=== PATIENT | male | born 1940 | race Caucasian/White ===

== ENCOUNTER → 2020-01-31 11:08 | Outpatient (CLI) | payer MEDICARE, OTHER, SELFPAY ==
[2020-01-31 12:04] LABS: Alanine Aminotransferase 21 IU/L (<50); Albumin 4.3 g/dL (3.5-5.0); Albumin Globulin Ratio 1.3 (1.0-2.8); Alkaline Phosphatase 60 U/L (38-126); Aspartate Aminotransferase 22 IU/L (17-59); BUN Creatinine Ratio 23.7 (6-22); Bilirubin Total 0.7 mg/dL (0.2-1.3); Blood Urea Nitrogen 18 mg/dL (9-20); Calcium 9.2 mg/dL (8.4-10.2); Carbon Dioxide 31 mmol/L (22-32); Chloride 104 mmol/L (98-107); Cholesterol 135 mg/dL (140-199); Estimated Glomerular Filt Rate > 60.0 mL/min (>60); Globulin 3.4 g/dL (1.7-4.1); Glucose 105 mg/dL (80-110); HDL Cholesterol 29 mg/dL (40-60); HEMOLYSIS < 15 (0-50); LDL Cholesterol Calculated 87 mg/dL (<100); Potassium 4.9 mmol/L (3.4-5.1); Sodium 141 mmol/L (137-145); Total Protein 7.7 g/dL (6.3-8.2); Triglycerides 94 mg/dL (35-150)
== END ==
PROVIDERS: PCP Internal Medicine; Referring Provider Internal Medicine; Visit Provider Internal Medicine
DX: E78.2 Mixed hyperlipidemia (principal)
CPT/HCPCS: 36415; 80053; 80061

== ENCOUNTER → 2020-09-13 07:04 | Outpatient (CLI) | payer MEDICARE, OTHER, SELFPAY ==
[2020-09-13 08:39] LABS: Alanine Aminotransferase 19 IU/L (<50); Albumin Globulin Ratio 1.3 (1.0-2.8); Alkaline Phosphatase 59 U/L (38-126); Aspartate Aminotransferase 21 IU/L (17-59); BUN Creatinine Ratio 23.4 (6-22); Bilirubin Total 0.6 mg/dL (0.2-1.3); Blood Urea Nitrogen 18 mg/dL (9-20); Calcium 9.2 mg/dL (8.4-10.2); Carbon Dioxide 28 mmol/L (22-32); Chloride 104 mmol/L (98-107); Cholesterol 150 mg/dL (140-199); Estimated Glomerular Filt Rate > 60.0 mL/min (>60); Glucose 109 mg/dL (80-110); HDL Cholesterol 29 mg/dL (40-60); HEMOLYSIS < 15 (0-50); LDL Cholesterol Calculated 94 mg/dL (<100); Potassium 4.4 mmol/L (3.4-5.1); Sodium 140 mmol/L (137-145); Triglycerides 134 mg/dL (35-150)
== END ==
PROVIDERS: PCP Internal Medicine; Referring Provider Internal Medicine; Visit Provider Internal Medicine
DX: E78.2 Mixed hyperlipidemia (principal); G62.9 Polyneuropathy, unspecified
CPT/HCPCS: 36415; 80053; 80061

== ENCOUNTER → 2021-03-06 08:41 | Outpatient (CLI) | payer MEDICARE, OTHER, SELFPAY ==
[2021-03-06 10:03] LABS: Alanine Aminotransferase 18 IU/L (<50); Albumin 4.2 g/dL (3.5-5.0); Albumin Globulin Ratio 1.4 (1.0-2.8); Alkaline Phosphatase 46 U/L (38-126); Aspartate Aminotransferase 20 IU/L (17-59); BUN Creatinine Ratio 20.3 (6-22); Bilirubin Total 0.8 mg/dL (0.2-1.3); Blood Urea Nitrogen 16 mg/dL (9-20); Carbon Dioxide 30 mmol/L (22-32); Chloride 102 mmol/L (98-107); Cholesterol 137 mg/dL (140-199); Estimated Glomerular Filt Rate > 60.0 mL/min (>60); Globulin 2.9 g/dL (1.7-4.1); Glucose 107 mg/dL (80-110); HDL Cholesterol 27 mg/dL (40-60); HEMOLYSIS < 15 (0-50); LDL Cholesterol Calculated 90 mg/dL (<100); Potassium 4.4 mmol/L (3.4-5.1); Sodium 139 mmol/L (137-145); Total Protein 7.1 g/dL (6.3-8.2); Triglycerides 100 mg/dL (35-150)
== END ==
PROVIDERS: PCP Internal Medicine; Referring Provider Internal Medicine; Visit Provider Internal Medicine
DX: E78.2 Mixed hyperlipidemia (principal); R73.03 Prediabetes
CPT/HCPCS: 36415; 80053; 80061

== ENCOUNTER → 2021-04-02 16:21 | Outpatient (CLI) | payer MEDICARE, OTHER, SELFPAY ==
--- NOTE | 2021-04-02 16:24 | DI.RAD.S_ITS ---
PROCEDURE: XR SHOULDER LT MIN 2V INDICATIONS: left shoulder pain TECHNIQUE: 3 views of the shoulder were acquired. COMPARISON: None. FINDINGS: Bones: No acute fractures or dislocations. No suspicious bony lesions. Visualized ribs appear intact. Moderate degenerative changes are seen at the acromioclavicular joint. Soft tissues: No suspicious soft tissue calcifications. IMPRESSION: No acute osseous abnormality. Moderate acromioclavicular joint osteoarthrosis. If the symptoms persist, consider cross sectional imaging such as MRI or CT for further assessment. Dictated by: Jj Lundberg M.D. on 04/02/2021 at 16:47 Approved by: Jj Lundberg M.D. on 04/02/2021 at 16:48
== END ==
PROVIDERS: PCP Internal Medicine; Referring Provider Internal Medicine; Visit Provider Internal Medicine
DX: M25.512 Pain in left shoulder (principal); M19.012 Primary osteoarthritis, left shoulder
CPT/HCPCS: 73030

== ENCOUNTER 2021-06-05 09:45 | Outpatient (RCR) | payer MEDICARE, OTHER, SELFPAY ==
--- NOTE | 2021-04-25 16:40 | PT.OIE ---
Current Diagnoses Pain in left shoulder (04/25/21) Stiffness of left shoulder, not elsewhere classified (04/25/21) Impingement syndrome of left shoulder (04/25/21) Past Medical History (Last Updated 02/22/20 @ 09:43 by Talib Sharp MD) Actinic keratosis (~1994) Benign familial tremor (~2013) Chronic back pain (~1966) Glaucoma (~2013) Hearing loss History of appendectomy (~1950) History of skin surgery Mixed hyperlipidemia Partial blindness (~2018) Peripheral neuropathy Pre-diabetes Retinal vein occlusion of right eye (~2018) Skin cancer (~2001) Snores Substance abuse (~1959) Tinnitus Vision disorder Past Surgical History (Last Updated 12/28/19 @ 20:40 by Samina Hayes) Anesthesia History of appendectomy (~1950) History of skin surgery Visit Care Team Role Provider Type Talib Sharp MD Attending Provider Physician Family Provider Primary Care Provider Referring Provider Specialty: Internal Medicine Address: [address] [place] [address], [facility] Email: [email or web address] Physical Therapy Initial Evaluation PT-OP-A Visit Information Start: 04/25/21 16:10 Freq: Status: Active Protocol: Document 04/25/21 13:45 DCW (Rec: 04/25/21 16:18 DCW [id number]) Out-Patient Physical Therapy Visit Information Visit Information Visit Type Initial Evaluation Visit Start Time 13:45 Visit Stop Time 14:25 Total Visit Minutes 40 Visit Number 1 Number of EDGE PLUGGER Visits 0 Evaluation Information Evaluation Date 04/25/21 PT-OP-B Current Condition Start: 04/25/21 16:10 Freq: Status: Active Protocol: Document 04/25/21 13:45 DCW (Rec: 04/25/21 16:18 DCW [id number]) Current Condition History of Current Condition Onset Date 20 year history Current Complaints Left shoulder pain and stiffness History of Current Condition Pt is an 81 year old male presenting with a long- standing history of shoulder pain. Pt reports overall it is not too bad, but ever since her was building a house in [place] 20 years ago, he has had some arm pain and stiffness, and it seems to be getting a bit worse. Pt has recently been having pain when he rolls onto the shoulder at night, it is bad enough to wake him up, and he's never had this problem previously. Pt notes that he gets a bit more pain when lifting his arm out to the side, he can get it overhead but needs to work at it. Pt also reports he has a regular HEP that he does daily, but would like to review it today, because he is afraid he may be doing something incorrectly that could be adding to his pain. Pt reports his biggest limitation is reaching back to put his arm in his jacket sleeve. PT-OP-C Subjective Start: 04/25/21 16:10 Freq: Status: Active Protocol: Document 04/25/21 13:45 DCW (Rec: 04/25/21 16:18 DCW [id number]) OP-PT Subjective Patient Comments Patient Comments I feel a little silly, most people here are worse off than I am, I'm reallt not to bad. Patient Reported Progress Same OP-PT Pain Assessment Pain Assessment Grid Paper Pain Assessment Grid Completed Yes Location Left Shoulder Intensity 3 Scale Used Numeric (0 - 10) PT-OP-E Functional Tests Start: 04/25/21 16:10 Freq: Status: Active Protocol: Document 04/25/21 13:45 DCW (Rec: 04/25/21 16:25 DCW [id number]) Functional Tests Apley's Scratch Test Action 1- Left Posterior opposite shoulder Action 1- Right Posterior opposite shoulder Action 2- Left T4 Action 2- Right T4 Action 3- Left T10 Action 3- Right T10 PT-OP-F Manual Assessment Start: 04/25/21 16:10 Freq: Status: Active Protocol: Document 04/25/21 13:45 DCW (Rec: 04/25/21 16:25 DCW [id number]) Manual Assessments Soft Tissue Assessment Soft Tissue Mobility Assessment Mild-moderate increased tone with tenderness to palpation 2 /4: pain with wincing left supraspinatus Joint Mobility Assessment Joint Mobility Assessment L GH crepitus with passive ROM PT-OP-K Range of Motion Start: 04/25/21 16:10 Freq: Status: Active Protocol: Document 04/25/21 13:45 DCW (Rec: 04/25/21 16:25 DCW [id number]) Shoulder Goniometric Range of Motion Shoulder Left Active Shoulder ROM WFL Yes Testing Position Sitting Comments Pt shows full ROM, however exhibits painful arc between 80?-120? abduction on left side PT-OP-L Special Tests Start: 04/25/21 16:10 Freq: Status: Active Protocol: Document 04/25/21 13:45 DCW (Rec: 04/25/21 16:25 DCW [id number]) Special Tests Shoulder Special Tests Speed's Biceps Test Results Negative Passive ER Rotator Cuff Test Results Negative Lift-Off Rotator Cuff Test Results Negative Linda Wander Impingement Test Results Negative Empty Can Test Results Negative Drop Arm Rotator Cuff Test Results Negative Clunk Test Test Results Negative Belly Press Test Results Negative Apprehension Test Test Results Negative AC Joint Compression Test Results Positive left PT-OP-M Strength Start: 04/25/21 16:10 Freq: Status: Active Protocol: Document 04/25/21 13:45 DCW (Rec: 04/25/21 16:25 DCW [id number]) Shoulder Strength Shoulder Manual Muscle Testing Left Flexion 3+ Fair+ Extension 5 Normal Abduction (C5) 4- Good- External Rotation 5 Normal Internal Rotation 5 Normal Horizontal Abduction 5 Normal Horizontal Adduction 5 Normal PT-OP-T Assessment and Plan Start: 04/25/21 16:10 Freq: Status: Active Protocol: Document 04/25/21 13:45 DCW (Rec: 04/25/21 16:40 DCW [id number]) Physical Therapy Assessment Rehab Potential Rehabilitation Potential Good Evaluation Complexity Number of Personal Factors/Comorbidities 0 Number of Body Systems Impaired 1-2 Clinical Presentation at Evaluation Stable Impairments Impairments Functional Activities, Functional Mobility,Pain, Strength Goals Three Impairment Pt demonstrates weakness in left shoulder flexion and abduction Glove Parts Cutter Goal (LTG) Pt to improve left flexion and abduction MMT to at least 4/5 to improve ability to put objects in his kitchen cabinets. LTG Duration 06/26/21 Two Impairment Pt struggles to put left arm in jacket sleeve Jail Goal (LTG) Pt to don/doff jacket with no difficulty or pain from his left shoulder LTG Duration 06/26/21 One Impairment Pt does not have an appropriate home exercise program Short Term Goal (STG) Pt to be independent and compliant with an appropriate HEP STG Duration 05/26/21 Assessment Summary Assessment Pt presents with signs and symptoms consistent with possible DJD and subacrominal impingement. Pt is doing fairly well overall, but struggles with elevation of his left arm, especially into abduction and flexion. Pt has some joint crepitus with passive ROM. Additionally, reviewed pt's personal HEP, which includes crunches, KtC, lumbar and cervical stretches, curls, and push-ups. Pt has a tendency to perform all these activities as fast as he possibly can to get my heart rate up, and gets through all ~10 exercises within the span of five minutes. Reviewed importance of performing slow, controlled activities during HEP, pt appeared to understand . Pt should benefit from gentle manual therapy and shoulder strengthening to help scapular stabilization. Physical Therapy Plan Frequency and Duration Frequency of Treatment 1x/Week Duration of Treatment Two months Plan of Care Start Date 04/25/21 Plan of Care End Date 06/26/21 Therapeutic Interventions Therapeutic Interventions Home Exercise Program,Joint Mobilizations,Manual Therapy, Patient/Caregiver Education, Self-Care/Home Management,Soft Tissue Mobilization, Therapeutic Activities, Therapeutic Exercises Modalities Cold Pack/Ice Massage,Electric Stimulation,Hot Packs, Ultrasound Next Visit Focus/Plan Next Note Type Treatment Note Next Visit Plan Scapular/GH strengthening, STM , Joint mobilization
--- NOTE | 2021-04-25 16:40 | PT.OPPOC ---
Physical, Occupational & Speech Therapy At [facility] Current Diagnoses Pain in left shoulder (04/25/21) Stiffness of left shoulder, not elsewhere classified (04/25/21) Impingement syndrome of left shoulder (04/25/21) Visit Care Team Role Provider Type Talib Sharp MD Attending Provider Physician Family Provider Primary Care Provider Referring Provider Specialty: Internal Medicine Address: [address] [place] [address], [address], [address] Email: [email or web address] Plan Of Care PT-OP-T Assessment and Plan Start: 04/25/21 16:10 Freq: Status: Active Protocol: Document 04/25/21 13:45 DCW (Rec: 04/25/21 16:40 DCW [id number]) Physical Therapy Assessment Rehab Potential Rehabilitation Potential Good Evaluation Complexity Number of Personal Factors/Comorbidities 0 Number of Body Systems Impaired 1-2 Clinical Presentation at Evaluation Stable Impairments Impairments Functional Activities, Functional Mobility,Pain, Strength Goals Three Impairment Pt demonstrates weakness in left shoulder flexion and abduction Lacquer Sprayer Goal (LTG) Pt to improve left flexion and abduction MMT to at least 4/5 to improve ability to put objects in his kitchen cabinets. LTG Duration 06/26/21 Two Impairment Pt struggles to put left arm in jacket sleeve Mcc Goal (LTG) Pt to don/doff jacket with no difficulty or pain from his left shoulder LTG Duration 06/26/21 One Impairment Pt does not have an appropriate home exercise program Short Term Goal (STG) Pt to be independent and compliant with an appropriate HEP STG Duration 05/26/21 Assessment Summary Assessment Pt presents with signs and symptoms consistent with possible DJD and subacrominal impingement. Pt is doing fairly well overall, but struggles with elevation of his left arm, especially into abduction and flexion. Pt has some joint crepitus with passive ROM. Additionally, reviewed pt's personal HEP, which includes crunches, KtC, lumbar and cervical stretches, curls, and push-ups. Pt has a tendency to perform all these activities as fast as he possibly can to get my heart rate up, and gets through all ~10 exercises within the span of five minutes. Reviewed importance of performing slow, controlled activities during HEP, pt appeared to understand . Pt should benefit from gentle manual therapy and shoulder strengthening to help scapular stabilization. Physical Therapy Plan Frequency and Duration Frequency of Treatment 1x/Week Duration of Treatment Two months Plan of Care Start Date 04/25/21 Plan of Care End Date 06/26/21 Therapeutic Interventions Therapeutic Interventions Home Exercise Program,Joint Mobilizations,Manual Therapy, Patient/Caregiver Education, Self-Care/Home Management,Soft Tissue Mobilization, Therapeutic Activities, Therapeutic Exercises Modalities Cold Pack/Ice Massage,Electric Stimulation,Hot Packs, Ultrasound Next Visit Focus/Plan Next Note Type Treatment Note Next Visit Plan Scapular/GH strengthening, STM , Joint mobilization Plan of Care Dates Plan of Care Start Date 04/25/21 Plan of Care End Date 06/26/21 Electronically Signed by: Burke Latham, PT 04/25/21 1640 Please Sign and Return: I have reviewed this Plan of Care and certify that the skilled therapy services above are required to meet the patient?s needs. Physician Signature Date Printed Name and Credentials Clinical Instructor Signature Printed Name and Credentials
--- NOTE | 2021-05-07 15:15 | PT.OTN ---
Current Diagnoses Pain in left shoulder (05/07/21) Stiffness of left shoulder, not elsewhere classified (05/07/21) Impingement syndrome of left shoulder (05/07/21) Physical Therapy Treatment Note PT-OP-A Visit Information Start: 04/25/21 16:10 Freq: Status: Active Protocol: Document 05/07/21 14:30 DCW (Rec: 05/07/21 15:15 DCW [id number]) Out-Patient Physical Therapy Visit Information Visit Information Visit Type Treatment Note Visit Start Time 14:30 Visit Stop Time 15:15 Total Visit Minutes 45 Visit Number 2 Number of SKEIN INSPECTOR Visits 0 Evaluation Information Evaluation Date 04/25/21 PT-OP-B Current Condition Start: 04/25/21 16:10 Freq: Status: Active Protocol: Document 04/25/21 13:45 DCW (Rec: 04/25/21 16:18 DCW [id number]) Current Condition History of Current Condition Onset Date 20 year history Current Complaints Left shoulder pain and stiffness History of Current Condition Pt is an 81 year old male presenting with a long- standing history of shoulder pain. Pt reports overall it is not too bad, but ever since her was building a house in [place] 20 years ago, he has had some arm pain and stiffness, and it seems to be getting a bit worse. Pt has recently been having pain when he rolls onto the shoulder at night, it is bad enough to wake him up, and he's never had this problem previously. Pt notes that he gets a bit more pain when lifting his arm out to the side, he can get it overhead but needs to work at it. Pt also reports he has a regular HEP that he does daily, but would like to review it today, because he is afraid he may be doing something incorrectly that could be adding to his pain. Pt reports his biggest limitation is reaching back to put his arm in his jacket sleeve. PT-OP-C Subjective Start: 04/25/21 16:10 Freq: Status: Active Protocol: Document 05/07/21 14:30 DCW (Rec: 05/07/21 15:15 DCW [id number]) OP-PT Subjective Patient Comments Patient Comments My shoulder hasn't been too bad, but my low back has been getting a little stiff. PT-OP-E Functional Tests Start: 04/25/21 16:10 Freq: Status: Active Protocol: Document 04/25/21 13:45 DCW (Rec: 04/25/21 16:25 DCW [id number]) Functional Tests Apley's Scratch Test Action 1- Left Posterior opposite shoulder Action 1- Right Posterior opposite shoulder Action 2- Left T4 Action 2- Right T4 Action 3- Left T10 Action 3- Right T10 PT-OP-F Manual Assessment Start: 04/25/21 16:10 Freq: Status: Active Protocol: Document 04/25/21 13:45 DCW (Rec: 04/25/21 16:25 DCW [id number]) Manual Assessments Soft Tissue Assessment Soft Tissue Mobility Assessment Mild-moderate increased tone with tenderness to palpation 2 /4: pain with wincing left supraspinatus Joint Mobility Assessment Joint Mobility Assessment L GH crepitus with passive ROM PT-OP-K Range of Motion Start: 04/25/21 16:10 Freq: Status: Active Protocol: Document 04/25/21 13:45 DCW (Rec: 04/25/21 16:25 DCW [id number]) Shoulder Goniometric Range of Motion Shoulder Left Active Shoulder ROM WFL Yes Testing Position Sitting Comments Pt shows full ROM, however exhibits painful arc between 80?-120? abduction on left side PT-OP-L Special Tests Start: 04/25/21 16:10 Freq: Status: Active Protocol: Document 04/25/21 13:45 DCW (Rec: 04/25/21 16:25 DCW [id number]) Special Tests Shoulder Special Tests Speed's Biceps Test Results Negative Passive ER Rotator Cuff Test Results Negative Lift-Off Rotator Cuff Test Results Negative Linda Wander Impingement Test Results Negative Empty Can Test Results Negative Drop Arm Rotator Cuff Test Results Negative Clunk Test Test Results Negative Belly Press Test Results Negative Apprehension Test Test Results Negative AC Joint Compression Test Results Positive left PT-OP-M Strength Start: 04/25/21 16:10 Freq: Status: Active Protocol: Document 04/25/21 13:45 DCW (Rec: 04/25/21 16:25 DCW [id number]) Shoulder Strength Shoulder Manual Muscle Testing Left Flexion 3+ Fair+ Extension 5 Normal Abduction (C5) 4- Good- External Rotation 5 Normal Internal Rotation 5 Normal Horizontal Abduction 5 Normal Horizontal Adduction 5 Normal PT-OP-Q Treatments Start: 04/25/21 16:10 Freq: Status: Active Protocol: Document 05/07/21 14:30 DCW (Rec: 05/07/21 15:15 DCW [id number]) Cardio Equipment Upper Body Ergometer (UBE) Duration (Minutes) 5 RPM 60 Seat Position 13 Height 2.5 Gym Equipment Therapeutic Ball 1 Exercise Details Scapular stabilization vs perturbation Ball Size/Color Blue - 45 cm Body Position Supine Therapeutic Exercises Supine Exercises 2 Supine Exercise Name Horizontal Adduction Side bilateral Resistance 2# 1 Supine Exercise Name Serratus punch Side bilateral Resistance 2# Standing Exercises 3 Standing Exercise Name Shoulder ER/IR Side bilateral Resistance Lv 3 2 Standing Exercise Name Rows Side bilateral Resistance Lv 3 1 Standing Exercise Name Shoulder Ext Side bilateral Resistance Lv 3 Manual Therapy Treatment Soft Tissue Mobilization 1 Body Location L Infraspinatus Mobilization Type Strumming,Sustained Pressure Intensity/Depth Moderate Body Position Supine Joint Mobilizations 2 Joint L Scapulothoracic Direction Lat Grade III 1 Joint L GH Direction Inf Grade III PT-OP-T Assessment and Plan Start: 04/25/21 16:10 Freq: Status: Active Protocol: Document 05/07/21 14:30 DCW (Rec: 05/07/21 15:15 DCW [id number]) Physical Therapy Assessment Impairments Impairments Functional Activities, Functional Mobility,Pain, Strength Goals Three Impairment Pt demonstrates weakness in left shoulder flexion and abduction Skilled Nursing Goal (LTG) Pt to improve left flexion and abduction MMT to at least 4/5 to improve ability to put objects in his kitchen cabinets. LTG Duration 06/26/21 Two Impairment Pt struggles to put left arm in jacket sleeve Pick Up And Delivery Driver Goal (LTG) Pt to don/doff jacket with no difficulty or pain from his left shoulder LTG Duration 06/26/21 One Impairment Pt does not have an appropriate home exercise program Short Term Goal (STG) Pt to be independent and compliant with an appropriate HEP STG Duration 05/26/21 Assessment Summary Assessment Pt tolerated treatment well, needs VCs to slow down exercises. Some improved scapular mobility following manual treatment today. Physical Therapy Plan Frequency and Duration Frequency of Treatment 1x/Week Duration of Treatment Two months Plan of Care Start Date 04/25/21 Plan of Care End Date 06/26/21 Therapeutic Interventions Therapeutic Interventions Home Exercise Program,Joint Mobilizations,Manual Therapy, Patient/Caregiver Education, Self-Care/Home Management,Soft Tissue Mobilization, Therapeutic Activities, Therapeutic Exercises Modalities Cold Pack/Ice Massage,Electric Stimulation,Hot Packs, Ultrasound Next Visit Focus/Plan Next Note Type Treatment Note Next Visit Plan Scapular/GH strengthening, STM , Joint mobilization
--- NOTE | 2021-05-15 10:27 | PT.OTN ---
Current Diagnoses Pain in left shoulder (05/15/21) Stiffness of left shoulder, not elsewhere classified (05/15/21) Impingement syndrome of left shoulder (05/15/21) Physical Therapy Treatment Note PT-OP-A Visit Information Start: 04/25/21 16:10 Freq: Status: Active Protocol: Document 05/15/21 09:45 DCW (Rec: 05/15/21 10:26 DCW [id number]) Out-Patient Physical Therapy Visit Information Visit Information Visit Type Treatment Note Visit Start Time 09:45 Visit Stop Time 10:30 Total Visit Minutes 45 Visit Number 3 Number of EDITOR MANAGING NEWSPAPER Visits 0 Evaluation Information Evaluation Date 04/25/21 PT-OP-B Current Condition Start: 04/25/21 16:10 Freq: Status: Active Protocol: Document 04/25/21 13:45 DCW (Rec: 04/25/21 16:18 DCW [id number]) Current Condition History of Current Condition Onset Date 20 year history Current Complaints Left shoulder pain and stiffness History of Current Condition Pt is an 81 year old male presenting with a long- standing history of shoulder pain. Pt reports overall it is not too bad, but ever since her was building a house in [place] 20 years ago, he has had some arm pain and stiffness, and it seems to be getting a bit worse. Pt has recently been having pain when he rolls onto the shoulder at night, it is bad enough to wake him up, and he's never had this problem previously. Pt notes that he gets a bit more pain when lifting his arm out to the side, he can get it overhead but needs to work at it. Pt also reports he has a regular HEP that he does daily, but would like to review it today, because he is afraid he may be doing something incorrectly that could be adding to his pain. Pt reports his biggest limitation is reaching back to put his arm in his jacket sleeve. PT-OP-C Subjective Start: 04/25/21 16:10 Freq: Status: Active Protocol: Document 05/15/21 09:45 DCW (Rec: 05/15/21 10:26 DCW [id number]) OP-PT Subjective Patient Comments Patient Comments I can still feel it, but it's not waking me up at night, with is a pretty significant improvement. PT-OP-E Functional Tests Start: 04/25/21 16:10 Freq: Status: Active Protocol: Document 04/25/21 13:45 DCW (Rec: 04/25/21 16:25 DCW [id number]) Functional Tests Apley's Scratch Test Action 1- Left Posterior opposite shoulder Action 1- Right Posterior opposite shoulder Action 2- Left T4 Action 2- Right T4 Action 3- Left T10 Action 3- Right T10 PT-OP-F Manual Assessment Start: 04/25/21 16:10 Freq: Status: Active Protocol: Document 04/25/21 13:45 DCW (Rec: 04/25/21 16:25 DCW [id number]) Manual Assessments Soft Tissue Assessment Soft Tissue Mobility Assessment Mild-moderate increased tone with tenderness to palpation 2 /4: pain with wincing left supraspinatus Joint Mobility Assessment Joint Mobility Assessment L GH crepitus with passive ROM PT-OP-K Range of Motion Start: 04/25/21 16:10 Freq: Status: Active Protocol: Document 04/25/21 13:45 DCW (Rec: 04/25/21 16:25 DCW [id number]) Shoulder Goniometric Range of Motion Shoulder Left Active Shoulder ROM WFL Yes Testing Position Sitting Comments Pt shows full ROM, however exhibits painful arc between 80?-120? abduction on left side PT-OP-L Special Tests Start: 04/25/21 16:10 Freq: Status: Active Protocol: Document 04/25/21 13:45 DCW (Rec: 04/25/21 16:25 DCW [id number]) Special Tests Shoulder Special Tests Speed's Biceps Test Results Negative Passive ER Rotator Cuff Test Results Negative Lift-Off Rotator Cuff Test Results Negative Linda Wander Impingement Test Results Negative Empty Can Test Results Negative Drop Arm Rotator Cuff Test Results Negative Clunk Test Test Results Negative Belly Press Test Results Negative Apprehension Test Test Results Negative AC Joint Compression Test Results Positive left PT-OP-M Strength Start: 04/25/21 16:10 Freq: Status: Active Protocol: Document 04/25/21 13:45 DCW (Rec: 04/25/21 16:25 DCW [id number]) Shoulder Strength Shoulder Manual Muscle Testing Left Flexion 3+ Fair+ Extension 5 Normal Abduction (C5) 4- Good- External Rotation 5 Normal Internal Rotation 5 Normal Horizontal Abduction 5 Normal Horizontal Adduction 5 Normal PT-OP-Q Treatments Start: 04/25/21 16:10 Freq: Status: Active Protocol: Document 05/15/21 09:45 DCW (Rec: 05/15/21 10:26 [facility] [id number]) Cardio Equipment Upper Body Ergometer (UBE) Duration (Minutes) 5 RPM 60 Seat Position 13 Height 2.5 Therapeutic Exercises Other Exercises 4 Other Exercise Name Wall push-ups Comments <> and W hand positions 3 Other Exercise Name Wall Clock Side bilateral Resistance Red Equipment Used T-band 2 Other Exercise Name UE resisted side-stepping Resistance Red Equipment Used T-band 1 Other Exercise Name Wall circles - ball on wall Side left Resistance 4# Comments flexion/abduction Manual Therapy Treatment Soft Tissue Mobilization 2 Body Location L Subscapularis Mobilization Type Strumming,Sustained Pressure Intensity/Depth Moderate Body Position Supine 1 Body Location L Infraspinatus Mobilization Type Strumming,Sustained Pressure Intensity/Depth Moderate Body Position Supine Joint Mobilizations 2 Joint L Scapulothoracic Direction Lat Grade III 1 Joint L GH Direction Inf Grade III PT-OP-T Assessment and Plan Start: 04/25/21 16:10 Freq: Status: Active Protocol: Document 05/15/21 09:45 DCW (Rec: 05/15/21 10:26 DC [id number]) Physical Therapy Assessment Impairments Impairments Functional Activities, Functional Mobility,Pain, Strength Goals Three Impairment Pt demonstrates weakness in left shoulder flexion and abduction Doorperson Goal (LTG) Pt to improve left flexion and abduction MMT to at least 4/5 to improve ability to put objects in his kitchen cabinets. LTG Duration 06/26/21 Two Impairment Pt struggles to put left arm in jacket sleeve Doorperson Goal (LTG) Pt to don/doff jacket with no difficulty or pain from his left shoulder LTG Duration 06/26/21 One Impairment Pt does not have an appropriate home exercise program Short Term Goal (STG) Pt to be independent and compliant with an appropriate HEP STG Duration 05/26/21 Assessment Summary Assessment Pt already showing very good improvement, improved pain- free ROM, significant improvement with quality and control of movement during HEP Physical Therapy Plan Frequency and Duration Frequency of Treatment 1x/Week Duration of Treatment Two months Plan of Care Start Date 04/25/21 Plan of Care End Date 06/26/21 Therapeutic Interventions Therapeutic Interventions Home Exercise Program,Joint Mobilizations,Manual Therapy, Patient/Caregiver Education, Self-Care/Home Management,Soft Tissue Mobilization, Therapeutic Activities, Therapeutic Exercises Modalities Cold Pack/Ice Massage,Electric Stimulation,Hot Packs, Ultrasound Next Visit Focus/Plan Next Note Type Treatment Note Next Visit Plan Scapular/GH strengthening, STM , Joint mobilization
--- NOTE | 2021-05-22 10:30 | PT.OTN ---
Current Diagnoses Pain in left shoulder (05/22/21) Stiffness of left shoulder, not elsewhere classified (05/22/21) Impingement syndrome of left shoulder (05/22/21) Physical Therapy Treatment Note PT-OP-A Visit Information Start: 04/25/21 16:10 Freq: Status: Active Protocol: Document 05/22/21 09:45 DCW (Rec: 05/22/21 10:30 DCW [id number]) Out-Patient Physical Therapy Visit Information Visit Information Visit Type Treatment Note Visit Start Time 09:45 Visit Stop Time 10:30 Total Visit Minutes 45 Visit Number 4 Number of FLUME WORKER Visits 0 Evaluation Information Evaluation Date 04/25/21 PT-OP-B Current Condition Start: 04/25/21 16:10 Freq: Status: Active Protocol: Document 04/25/21 13:45 DCW (Rec: 04/25/21 16:18 DCW [id number]) Current Condition History of Current Condition Onset Date 20 year history Current Complaints Left shoulder pain and stiffness History of Current Condition Pt is an 81 year old male presenting with a long- standing history of shoulder pain. Pt reports overall it is not too bad, but ever since her was building a house in [place] 20 years ago, he has had some arm pain and stiffness, and it seems to be getting a bit worse. Pt has recently been having pain when he rolls onto the shoulder at night, it is bad enough to wake him up, and he's never had this problem previously. Pt notes that he gets a bit more pain when lifting his arm out to the side, he can get it overhead but needs to work at it. Pt also reports he has a regular HEP that he does daily, but would like to review it today, because he is afraid he may be doing something incorrectly that could be adding to his pain. Pt reports his biggest limitation is reaching back to put his arm in his jacket sleeve. PT-OP-C Subjective Start: 04/25/21 16:10 Freq: Status: Active Protocol: Document 05/22/21 09:45 DCW (Rec: 05/22/21 10:30 DCW [id number]) OP-PT Subjective Patient Comments Patient Comments It's getting better, it's certainly not 100% yet. PT-OP-E Functional Tests Start: 04/25/21 16:10 Freq: Status: Active Protocol: Document 04/25/21 13:45 DCW (Rec: 04/25/21 16:25 DCW [id number]) Functional Tests Apley's Scratch Test Action 1- Left Posterior opposite shoulder Action 1- Right Posterior opposite shoulder Action 2- Left T4 Action 2- Right T4 Action 3- Left T10 Action 3- Right T10 PT-OP-F Manual Assessment Start: 04/25/21 16:10 Freq: Status: Active Protocol: Document 04/25/21 13:45 DCW (Rec: 04/25/21 16:25 DCW [id number]) Manual Assessments Soft Tissue Assessment Soft Tissue Mobility Assessment Mild-moderate increased tone with tenderness to palpation 2 /4: pain with wincing left supraspinatus Joint Mobility Assessment Joint Mobility Assessment L GH crepitus with passive ROM PT-OP-K Range of Motion Start: 04/25/21 16:10 Freq: Status: Active Protocol: Document 04/25/21 13:45 DCW (Rec: 04/25/21 16:25 DCW [id number]) Shoulder Goniometric Range of Motion Shoulder Left Active Shoulder ROM WFL Yes Testing Position Sitting Comments Pt shows full ROM, however exhibits painful arc between 80?-120? abduction on left side PT-OP-L Special Tests Start: 04/25/21 16:10 Freq: Status: Active Protocol: Document 04/25/21 13:45 DCW (Rec: 04/25/21 16:25 DCW [id number]) Special Tests Shoulder Special Tests Speed's Biceps Test Results Negative Passive ER Rotator Cuff Test Results Negative Lift-Off Rotator Cuff Test Results Negative Linda Wander Impingement Test Results Negative Empty Can Test Results Negative Drop Arm Rotator Cuff Test Results Negative Clunk Test Test Results Negative Belly Press Test Results Negative Apprehension Test Test Results Negative AC Joint Compression Test Results Positive left PT-OP-M Strength Start: 04/25/21 16:10 Freq: Status: Active Protocol: Document 04/25/21 13:45 DCW (Rec: 04/25/21 16:25 DCW [id number]) Shoulder Strength Shoulder Manual Muscle Testing Left Flexion 3+ Fair+ Extension 5 Normal Abduction (C5) 4- Good- External Rotation 5 Normal Internal Rotation 5 Normal Horizontal Abduction 5 Normal Horizontal Adduction 5 Normal PT-OP-Q Treatments Start: 04/25/21 16:10 Freq: Status: Active Protocol: Document 05/22/21 09:45 DCW (Rec: 05/22/21 10:30 DCW [id number]) Cardio Equipment Upper Body Ergometer (UBE) Duration (Minutes) 5 RPM 60 Seat Position 13 Height 2.5 Therapeutic Exercises Other Exercises 3 Other Exercise Name Wall Clock Side bilateral Resistance Red Equipment Used T-band 2 Other Exercise Name UE resisted side-stepping Resistance Red Equipment Used T-band Manual Therapy Treatment Soft Tissue Mobilization 2 Body Location L Subscapularis Mobilization Type Strumming,Sustained Pressure Intensity/Depth Moderate Body Position Supine 1 Body Location L Infraspinatus Mobilization Type Strumming,Sustained Pressure Intensity/Depth Moderate Body Position Supine Joint Mobilizations 2 Joint L Scapulothoracic Direction Lat Grade III 1 Joint L GH Direction Inf Grade III PT-OP-T Assessment and Plan Start: 04/25/21 16:10 Freq: Status: Active Protocol: Document 05/22/21 09:45 DCW (Rec: 05/22/21 10:30 DCW [id number]) Physical Therapy Assessment Impairments Impairments Functional Activities, Functional Mobility,Pain, Strength Goals Three Impairment Pt demonstrates weakness in left shoulder flexion and abduction Skilled Nursing Goal (LTG) Pt to improve left flexion and abduction MMT to at least 4/5 to improve ability to put objects in his kitchen cabinets. LTG Duration 06/26/21 Two Impairment Pt struggles to put left arm in jacket sleeve Skilled Nursing Goal (LTG) Pt to don/doff jacket with no difficulty or pain from his left shoulder LTG Duration 06/26/21 One Impairment Pt does not have an appropriate home exercise program Short Term Goal (STG) Pt to be independent and compliant with an appropriate HEP STG Duration 05/26/21 Assessment Summary Assessment Pt continues to progress well, noting improved pain levels and mobility. Improving with HEP, still needs VCs to improve pacing. Physical Therapy Plan Frequency and Duration Frequency of Treatment 1x/Week Duration of Treatment Two months Plan of Care Start Date 04/25/21 Plan of Care End Date 06/26/21 Therapeutic Interventions Therapeutic Interventions Home Exercise Program,Joint Mobilizations,Manual Therapy, Patient/Caregiver Education, Self-Care/Home Management,Soft Tissue Mobilization, Therapeutic Activities, Therapeutic Exercises Modalities Cold Pack/Ice Massage,Electric Stimulation,Hot Packs, Ultrasound Next Visit Focus/Plan Next Note Type Treatment Note Next Visit Plan Scapular/GH strengthening, STM , Joint mobilization
--- NOTE | 2021-05-31 10:27 | PT.OTN ---
Current Diagnoses Pain in left shoulder (05/31/21) Stiffness of left shoulder, not elsewhere classified (05/31/21) Impingement syndrome of left shoulder (05/31/21) Physical Therapy Treatment Note PT-OP-A Visit Information Start: 04/25/21 16:10 Freq: Status: Active Protocol: Document 05/31/21 09:45 DCW (Rec: 05/31/21 10:27 DCW [id number]) Out-Patient Physical Therapy Visit Information Visit Information Visit Type Treatment Note Visit Start Time 09:45 Visit Stop Time 10:30 Total Visit Minutes 45 Visit Number 5 Number of RETURN AGENT Visits 0 Evaluation Information Evaluation Date 04/25/21 PT-OP-B Current Condition Start: 04/25/21 16:10 Freq: Status: Active Protocol: Document 04/25/21 13:45 DCW (Rec: 04/25/21 16:18 DCW [id number]) Current Condition History of Current Condition Onset Date 20 year history Current Complaints Left shoulder pain and stiffness History of Current Condition Pt is an 81 year old male presenting with a long- standing history of shoulder pain. Pt reports overall it is not too bad, but ever since her was building a house in [place] 20 years ago, he has had some arm pain and stiffness, and it seems to be getting a bit worse. Pt has recently been having pain when he rolls onto the shoulder at night, it is bad enough to wake him up, and he's never had this problem previously. Pt notes that he gets a bit more pain when lifting his arm out to the side, he can get it overhead but needs to work at it. Pt also reports he has a regular HEP that he does daily, but would like to review it today, because he is afraid he may be doing something incorrectly that could be adding to his pain. Pt reports his biggest limitation is reaching back to put his arm in his jacket sleeve. PT-OP-C Subjective Start: 04/25/21 16:10 Freq: Status: Active Protocol: Document 05/31/21 09:45 DCW (Rec: 05/31/21 10:27 DCW [id number]) OP-PT Subjective Patient Comments Patient Comments It's a lot better than it was when I started in here. PT-OP-E Functional Tests Start: 04/25/21 16:10 Freq: Status: Active Protocol: Document 04/25/21 13:45 DCW (Rec: 04/25/21 16:25 DCW [id number]) Functional Tests Apley's Scratch Test Action 1- Left Posterior opposite shoulder Action 1- Right Posterior opposite shoulder Action 2- Left T4 Action 2- Right T4 Action 3- Left T10 Action 3- Right T10 PT-OP-F Manual Assessment Start: 04/25/21 16:10 Freq: Status: Active Protocol: Document 04/25/21 13:45 DCW (Rec: 04/25/21 16:25 DCW [id number]) Manual Assessments Soft Tissue Assessment Soft Tissue Mobility Assessment Mild-moderate increased tone with tenderness to palpation 2 /4: pain with wincing left supraspinatus Joint Mobility Assessment Joint Mobility Assessment L GH crepitus with passive ROM PT-OP-K Range of Motion Start: 04/25/21 16:10 Freq: Status: Active Protocol: Document 04/25/21 13:45 DCW (Rec: 04/25/21 16:25 DCW [id number]) Shoulder Goniometric Range of Motion Shoulder Left Active Shoulder ROM WFL Yes Testing Position Sitting Comments Pt shows full ROM, however exhibits painful arc between 80?-120? abduction on left side PT-OP-L Special Tests Start: 04/25/21 16:10 Freq: Status: Active Protocol: Document 04/25/21 13:45 DCW (Rec: 04/25/21 16:25 DCW [id number]) Special Tests Shoulder Special Tests Speed's Biceps Test Results Negative Passive ER Rotator Cuff Test Results Negative Lift-Off Rotator Cuff Test Results Negative Linda Wander Impingement Test Results Negative Empty Can Test Results Negative Drop Arm Rotator Cuff Test Results Negative Clunk Test Test Results Negative Belly Press Test Results Negative Apprehension Test Test Results Negative AC Joint Compression Test Results Positive left PT-OP-M Strength Start: 04/25/21 16:10 Freq: Status: Active Protocol: Document 04/25/21 13:45 DCW (Rec: 04/25/21 16:25 DCW [id number]) Shoulder Strength Shoulder Manual Muscle Testing Left Flexion 3+ Fair+ Extension 5 Normal Abduction (C5) 4- Good- External Rotation 5 Normal Internal Rotation 5 Normal Horizontal Abduction 5 Normal Horizontal Adduction 5 Normal PT-OP-Q Treatments Start: 04/25/21 16:10 Freq: Status: Active Protocol: Document 05/31/21 09:45 DCW (Rec: 05/31/21 10:27 DCW [id number]) Cardio Equipment Upper Body Ergometer (UBE) Duration (Minutes) 5 RPM 60 Seat Position 13 Height 2.5 Therapeutic Exercises Supine Exercises 2 Supine Exercise Name UE PNF D1/D2 Flexion Side left 1 Supine Exercise Name 90/90 shoulder ER/IR Side left Resistance 2.2# ball Manual Therapy Treatment Soft Tissue Mobilization 2 Body Location L Subscapularis Mobilization Type Strumming,Sustained Pressure Intensity/Depth Moderate Body Position Supine 1 Body Location L Infraspinatus Mobilization Type Strumming,Sustained Pressure Intensity/Depth Moderate Body Position Supine Joint Mobilizations 2 Joint L Scapulothoracic Direction Lat Grade III 1 Joint L GH Direction Inf Grade III PT-OP-T Assessment and Plan Start: 04/25/21 16:10 Freq: Status: Active Protocol: Document 05/31/21 09:45 DCW (Rec: 05/31/21 10:27 DCW [id number]) Physical Therapy Assessment Impairments Impairments Functional Activities, Functional Mobility,Pain, Strength Goals Three Impairment Pt demonstrates weakness in left shoulder flexion and abduction Sustainability Manager Goal (LTG) Pt to improve left flexion and abduction MMT to at least 4/5 to improve ability to put objects in his kitchen cabinets. LTG Duration 06/26/21 Two Impairment Pt struggles to put left arm in jacket sleeve Skilled Nursing Goal (LTG) Pt to don/doff jacket with no difficulty or pain from his left shoulder LTG Duration 06/26/21 One Impairment Pt does not have an appropriate home exercise program Short Term Goal (STG) Pt to be independent and compliant with an appropriate HEP STG Duration 05/26/21 Assessment Summary Assessment Pt showing great progress, will likely be transitioning to independent HEP within the next couple of appointments. Added new HEP exercises today, D1/D2 PNF. Physical Therapy Plan Frequency and Duration Frequency of Treatment 1x/Week Duration of Treatment Two months Plan of Care Start Date 04/25/21 Plan of Care End Date 06/26/21 Therapeutic Interventions Therapeutic Interventions Home Exercise Program,Joint Mobilizations,Manual Therapy, Patient/Caregiver Education, Self-Care/Home Management,Soft Tissue Mobilization, Therapeutic Activities, Therapeutic Exercises Modalities Cold Pack/Ice Massage,Electric Stimulation,Hot Packs, Ultrasound Next Visit Focus/Plan Next Note Type Treatment Note Next Visit Plan Scapular/GH strengthening, STM , Joint mobilization
--- NOTE | 2021-06-05 10:15 | PT.OTN ---
Current Diagnoses Pain in left shoulder (06/05/21) Stiffness of left shoulder, not elsewhere classified (06/05/21) Impingement syndrome of left shoulder (06/05/21) Physical Therapy Treatment Note PT-OP-A Visit Information Start: 04/25/21 16:10 Freq: Status: Active Protocol: Document 06/05/21 09:47 DCW (Rec: 06/05/21 10:14 DCW [id number]) Out-Patient Physical Therapy Visit Information Visit Information Visit Type Discharge Summary Visit Start Time 09:47 Visit Stop Time 10:15 Total Visit Minutes 28 Visit Number 6 Number of STREAM [employer]OL OFFICER Visits 0 Evaluation Information Evaluation Date 04/25/21 PT-OP-B Current Condition Start: 04/25/21 16:10 Freq: Status: Active Protocol: Document 04/25/21 13:45 DCW (Rec: 04/25/21 16:18 DCW [id number]) Current Condition History of Current Condition Onset Date 20 year history Current Complaints Left shoulder pain and stiffness History of Current Condition Pt is an 81 year old male presenting with a long- standing history of shoulder pain. Pt reports overall it is not too bad, but ever since her was building a house in [place] 20 years ago, he has had some arm pain and stiffness, and it seems to be getting a bit worse. Pt has recently been having pain when he rolls onto the shoulder at night, it is bad enough to wake him up, and he's never had this problem previously. Pt notes that he gets a bit more pain when lifting his arm out to the side, he can get it overhead but needs to work at it. Pt also reports he has a regular HEP that he does daily, but would like to review it today, because he is afraid he may be doing something incorrectly that could be adding to his pain. Pt reports his biggest limitation is reaching back to put his arm in his jacket sleeve. PT-OP-C Subjective Start: 04/25/21 16:10 Freq: Status: Active Protocol: Document 06/05/21 09:47 DCW (Rec: 06/05/21 10:14 DCW [id number]) OP-PT Subjective Patient Comments Patient Comments Pt notes that he feels comfortable with his home exercises, and believes he is ready for discharge. PT-OP-E Functional Tests Start: 04/25/21 16:10 Freq: Status: Active Protocol: Document 04/25/21 13:45 DCW (Rec: 04/25/21 16:25 DCW [id number]) Functional Tests Apley's Scratch Test Action 1- Left Posterior opposite shoulder Action 1- Right Posterior opposite shoulder Action 2- Left T4 Action 2- Right T4 Action 3- Left T10 Action 3- Right T10 PT-OP-F Manual Assessment Start: 04/25/21 16:10 Freq: Status: Active Protocol: Document 04/25/21 13:45 DCW (Rec: 04/25/21 16:25 DCW [id number]) Manual Assessments Soft Tissue Assessment Soft Tissue Mobility Assessment Mild-moderate increased tone with tenderness to palpation 2 /4: pain with wincing left supraspinatus Joint Mobility Assessment Joint Mobility Assessment L GH crepitus with passive ROM PT-OP-K Range of Motion Start: 04/25/21 16:10 Freq: Status: Active Protocol: Document 04/25/21 13:45 DCW (Rec: 04/25/21 16:25 DCW [id number]) Shoulder Goniometric Range of Motion Shoulder Left Active Shoulder ROM WFL Yes Testing Position Sitting Comments Pt shows full ROM, however exhibits painful arc between 80?-120? abduction on left side PT-OP-L Special Tests Start: 04/25/21 16:10 Freq: Status: Active Protocol: Document 04/25/21 13:45 DCW (Rec: 04/25/21 16:25 DCW [id number]) Special Tests Shoulder Special Tests Speed's Biceps Test Results Negative Passive ER Rotator Cuff Test Results Negative Lift-Off Rotator Cuff Test Results Negative Linda Wander Impingement Test Results Negative Empty Can Test Results Negative Drop Arm Rotator Cuff Test Results Negative Clunk Test Test Results Negative Belly Press Test Results Negative Apprehension Test Test Results Negative AC Joint Compression Test Results Positive left PT-OP-M Strength Start: 04/25/21 16:10 Freq: Status: Active Protocol: Document 04/25/21 13:45 DCW (Rec: 04/25/21 16:25 DCW [id number]) Shoulder Strength Shoulder Manual Muscle Testing Left Flexion 3+ Fair+ Extension 5 Normal Abduction (C5) 4- Good- External Rotation 5 Normal Internal Rotation 5 Normal Horizontal Abduction 5 Normal Horizontal Adduction 5 Normal PT-OP-Q Treatments Start: 04/25/21 16:10 Freq: Status: Active Protocol: Document 06/05/21 09:47 DCW (Rec: 06/05/21 10:14 DCW [id number]) Cardio Equipment Upper Body Ergometer (UBE) Duration (Minutes) 5 RPM 60 Seat Position 13 Height 2.5 Therapeutic Exercises Supine Exercises 2 Supine Exercise Name UE PNF D1/D2 Flexion Side left Manual Therapy Treatment Soft Tissue Mobilization 2 Body Location L Subscapularis Mobilization Type Strumming,Sustained Pressure Intensity/Depth Moderate Body Position Supine 1 Body Location L Infraspinatus Mobilization Type Strumming,Sustained Pressure Intensity/Depth Moderate Body Position Supine PT-OP-T Assessment and Plan Start: 04/25/21 16:10 Freq: Status: Active Protocol: Document 06/05/21 09:47 DCW (Rec: 06/05/21 10:14 DCW [id number]) Physical Therapy Assessment Impairments Impairments Functional Activities, Functional Mobility,Pain, Strength Goals Three Impairment Pt demonstrates weakness in left shoulder flexion and abduction Group Home Goal (LTG) Pt to improve left flexion and abduction MMT to at least 4/5 to improve ability to put objects in his kitchen cabinets. LTG Duration Met Two Impairment Pt struggles to put left arm in jacket sleeve Filling Hand Goal (LTG) Pt to don/doff jacket with no difficulty or pain from his left shoulder LTG Duration Met One Impairment Pt does not have an appropriate home exercise program Short Term Goal (STG) Pt to be independent and compliant with an appropriate HEP STG Duration Met Progress Towards Goals Progress Towards Goals Goals Met Assessment Summary Assessment Pt doing well, has met all goals, independent with HEP, appropriate for discharge at this time Physical Therapy Plan Frequency and Duration Frequency of Treatment 1x/Week Duration of Treatment Two months Plan of Care Start Date 04/25/21 Plan of Care End Date 06/26/21 Therapeutic Interventions Therapeutic Interventions Home Exercise Program,Joint Mobilizations,Manual Therapy, Patient/Caregiver Education, Self-Care/Home Management,Soft Tissue Mobilization, Therapeutic Activities, Therapeutic Exercises Modalities Cold Pack/Ice Massage,Electric Stimulation,Hot Packs, Ultrasound Discharge Physical Therapy Discharge Reasons Goals Met Next Visit Focus/Plan Next Note Type Discharge Summary
== END 2021-06-05 12:46 | disposition home or self-care (01) ==
LOC: PHYS 09:45
PROVIDERS: Family Provider Internal Medicine; PCP Internal Medicine; Referring Provider Internal Medicine; Visit Provider Internal Medicine
DX: M25.512 Pain in left shoulder (principal); M75.42 Impingement syndrome of left shoulder; M25.612 Stiffness of left shoulder, not elsewhere classified
CPT/HCPCS: 97110; 97140; 97161

== ENCOUNTER → 2022-04-15 11:48 | Outpatient (CLI) | payer MEDICARE, OTHER, SELFPAY ==
[2022-04-15 16:15] LABS: Alanine Aminotransferase 22 IU/L (<50); Albumin 4.2 g/dL (3.5-5.0); Albumin Globulin Ratio 1.3 (1.0-2.8); Alkaline Phosphatase 60 U/L (38-126); Aspartate Aminotransferase 20 IU/L (17-59); BUN Creatinine Ratio 18.1 (6-22); Bilirubin Total 0.7 mg/dL (0.2-1.3); Blood Urea Nitrogen 13 mg/dL (9-20); Calcium 8.8 mg/dL (8.4-10.2); Carbon Dioxide 29 mmol/L (22-32); Chloride 103 mmol/L (98-107); Estimated Glomerular Filt Rate > 60 mL/min (>60); Globulin 3.3 g/dL (1.7-4.1); Glucose 105 mg/dL (80-110); HEMOLYSIS < 15 (0-50); Potassium 4.3 mmol/L (3.4-5.1); Sodium 140 mmol/L (137-145); Total Protein 7.5 g/dL (6.3-8.2)
[2022-04-16 02:40] LABS: Cholesterol 138 mg/dL (140-199); HDL Cholesterol 27 mg/dL (40-60); LDL Cholesterol Calculated 82 mg/dL (<100); Triglycerides 147 mg/dL (35-150)
== END ==
PROVIDERS: Family Provider Internal Medicine; PCP Internal Medicine; Referring Provider Internal Medicine; Visit Provider Internal Medicine
DX: E78.2 Mixed hyperlipidemia (principal)
CPT/HCPCS: 36415; 80053; 80061